=== PATIENT | male | born 1990 | race Caucasian/White ===

== ENCOUNTER 2016-04-09 23:14 | Emergency (ER) | payer OTHER ==
--- NOTE | ~2016-04-09 | CR63 ---
[facility] A Service of [facility] & [facility] RADIOLOGY TEXT RESULTS PATIENT: KENDALL BARLOW LOCATION: SED : [birth year] UNIT #: [id number] AGE: [address]: Leela Prabhakar SEX: M ORDER DR: [id number] [address] [address] [id number] E MR#: [id number] Acc #: [id number] NAME: KENDALL BARLOW : 1990 SEX: M STUDY DATE/TIME: 04/09/2016 23:33 UNIT: SED ROOM: STUDY DESCRIPTION: CR Chest 2 View Attending Physician: Leela Prabhakar Pa-C Ordering Physician: Leela Prabhakar Pa-C Primary Care Physician: No Primary Care Physician MEDICAL IMAGING REPORT This report is preliminary unless electronic signature is present. EXAM PA and lateral views of the chest COMPARISON None INDICATIONS A 26-year-old male with cough, chills, body aches and chest congestion for 5 days. FINDINGS No evidence of pneumothorax, pleural effusion or acute airspace disease. There is top normal heart size. IMPRESSION No acute radiographic abnormality. Top normal heart size. Dictated by... Samuel Mcneill M.D. THIS IS AN ELECTRONICALLY VERIFIED REPORT Samuel Mcneill M.D. at 04/12/2016 7:44 PM Nikolai TD: 04/10/2016 03:19 JOB #: [id number] MEDICAL IMAGING REPORT
[~2016-04-09 23:14] MED LIST: BENADRYL25 MG PO; IBUPROFEN800 MG PO; LORTAB 5/500 TA1 TA1 PO; NO MEDICATIONS; PREDNISONE PO
[2016-04-09 23:27] LABS: INFLUENZA A POS (NEG); INFLUENZA B NEG (NEG)
== END 2016-04-10 00:08 | disposition home or self-care (01) ==
LOC: SED 23:14
PROVIDERS: Physician Assistant Medical
DX: J09.X2 Influenza due to identified novel influenza A virus with other respiratory manifestations (principal)
CPT/HCPCS: 71020; 87804; 99283